=== PATIENT | female | born 1980 | race Caucasian/White ===

== ENCOUNTER → 2016-04-29 | Outpatient (CLI) | payer OTHER | LOC: EMI 09:45 → MRI 10:11 | DX: K76.89 Other specified diseases of liver (principal); K76.0 Fatty (change of) liver, not elsewhere classified | CPT/HCPCS: 74183; A9577 ==

== ENCOUNTER → 2016-07-28 | Outpatient (CLI) | payer OTHER | LOC: LAB 08:50 | DX: K76.0 Fatty (change of) liver, not elsewhere classified (principal); D12.6 Benign neoplasm of colon, unspecified; R93.5 Abnormal findings on diagnostic imaging of other abdominal regions, including retroperitoneum | CPT/HCPCS: 36415; 84439; 84443; 86316 ==

== ENCOUNTER → 2016-10-25 | Outpatient (CLI) | payer OTHER ==
[2016-10-25 09:47] LABS: BUN/CREATININE RATIO 27 (0-10)
== END ==
LOC: LAB 08:48
PROVIDERS: Physician Assistant
DX: E87.6 Hypokalemia (principal); R93.5 Abnormal findings on diagnostic imaging of other abdominal regions, including retroperitoneum
CPT/HCPCS: 36415; 80048

== ENCOUNTER → 2020-06-10 | Outpatient (CLI) | payer BC, OTHER ==
[~2020-06-10] MED LIST: NORCO 5-325 TA1 EACH PO; ZOFRAN ODT 4 MG4 MG SL
== END ==
LOC: RAD 11:54
DX: M54.2 Cervicalgia (principal); M47.812 Spondylosis without myelopathy or radiculopathy, cervical region
CPT/HCPCS: 72050

== ENCOUNTER → 2021-01-13 | Outpatient (CLI) | payer BC | LOC: KOH-I 15:28 | DX: M54.9 Dorsalgia, unspecified (principal); M51.36 Other intervertebral disc degeneration, lumbar region; M53.3 Sacrococcygeal disorders, not elsewhere classified | CPT/HCPCS: 72100; 72202 ==

== ENCOUNTER 2021-02-08 13:06 | Emergency (ER) | payer BC | END 2021-02-08 17:10 | disposition left against medical advice (07) | LOC: ER1 13:06 | DX: U07.1 COVID-19 (principal); I10 Essential (primary) hypertension | CPT/HCPCS: 99282 ==